=== PATIENT | female | born 1955 | race Caucasian/White ===

== ENCOUNTER 2023-05-07 12:47 | Outpatient (AMB) | payer MEDICARE, SELFPAY ==
--- NOTE | 2023-05-07 13:00 | HO.SPINEOV ---
Intake Intake Visit Reasons: Left lumbar radiculopathy Intake Note: Mrs. Mckay is here today c/o left sided low back pain. MRI done @ [facility]/brought disc. [employer] Required: No Assessment & Plan Assessment & Plan (1) Spondylolisthesis, lumbar region: Code(s): M43.16 - Spondylolisthesis, lumbar region (2) Lumbar radiculopathy: Code(s): M54.16 - Radiculopathy, lumbar region Plan Dear Dr Peralta, Thank you for referring Mrs Mckay to our office today. She is a very nice 68-year-old female who presents to the office today for evaluation of a left lumbar radiculopathy that she has had for 6-7 years. Initially which is something that was a mild discomfort but gradually and steadily it has progressed to be severe and unpredictable. It starts on the left side of her buttock and goes down the back of her leg into her calf and foot. She has treated it conservatively with physical therapy, chiropractic. You did a cortisone injection for her at the L4-5 level and this did take some of the severity of the pain away but she still significantly uncomfortable when she has flares up. She will get severe cramp down her left leg which will put her down for the whole day. She takes gabapentin, [id number] medications like NSAIDs and Tylenol p.r.n.. She comes today to see us with an MRI from [facility] showing grade 1 spondylolisthesis at L4-5. PMH: She had an incidental lung cancer discovered last year for which she had a lobectomy and subsequent chemo. She has been stable with no signs of recurrent cancer in her breathing has not been impacted by the surgery. History of hypertension, high cholesterol, hypothyroidism, glaucoma, carpal tunnel surgery, 2 right foot surgeries Social hx: She does not smoke, quit smoking many years ago Medications: Amlodipine, atorvastatin, levothyroxine, Lumigan, dorzolamide, Advair, gabapentin Allergies: None Physical exam: Strength and gait are normal, reflexes normal Imaging review: Lumbar MRI done at [facility] in October of 2022 reveals transitional anatomy, a grade 1 spondylolisthesis at L4-5 with facet arthropathy on the left and significant bilateral lateral recess stenosis. Impression: 60-year-old female presents to the office for evaluation of a left lumbar radiculopathy, denies any back pain, seems to fit best with the L5 distribution. She has clear compression on the MRI at the L4-5 segment. We did flexion-extension x-rays here in the office and it did not show any signs of overt instability. She has failed conservative treatment. In the absence of back pain, Dr. Hong offered her a left L4-5 decompression. All pertinent risks and benefits were discussed. The patient understands that there is a slight risk that there could develop instability after surgery but we suspect it unlikely. The patient will let us know if she would like to proceed. Since she is feeling slightly better after the injection she is going to wait and see how things go. Thank you for allowing us to care for your patient. The total time spent with this visit with this patient was 45 minutes reviewing history, physical exam, lumbar imaging review, and implementation of treatment plan or further diagnostic testing Barrie Hong MD,PhD [facility] Orders: Orders XR lumbar spine 4V min Today M43.16 - Spondylolisthesis, lumbar region Coding Level of Care Code New Pt Level 4 (74039) Diagnoses Spondylolisthesis, lumbar region M43.16 Lumbar radiculopathy M54.16
== END 2023-05-07 13:58 | disposition home or self-care (01) ==
PROVIDERS: Referring Provider Physical Medicine & Rehabilitation; Visit Provider Physician Assistant
DX: M43.16 Spondylolisthesis, lumbar region (principal); M54.16 Radiculopathy, lumbar region
CPT/HCPCS: 99204

== ENCOUNTER 2023-05-07 12:47 | Outpatient (REF) | payer SELFPAY ==
--- NOTE | ~2023-05-07 | XR_ITS ---
EXAMINATION: XR LUMBOSACRAL SPINE WITH OBLIQUES CLINICAL INFORMATION: Spondylolisthesis lumbar region COMPARISON: None available. TECHNIQUE: 4 views of the lumbar spine inclusive of flexion and extension views. FINDINGS: Extensive atherosclerotic aortoiliac calcifications. Bones are diffusely demineralized. Dextroscoliosis of the lumbar spine. Metallic device characteristic of a zipper and a rounded device project over the pelvis. Correlation with clinical exam recommended to confirm etiology. Multilevel lumbar spondylosis most notable at L5-S1 with moderate loss of disc space height and anterolisthesis of L5 on S1. XR/XR lumbar spine 4V min IMPRESSION: Moderate multilevel lumbar spondylosis most notable at L5-S1
== END 2023-05-07 12:48 | disposition home or self-care (01) ==
LOC: HO.HOSX 12:47
PROVIDERS: Visit Provider Physician Assistant
DX: M43.16 Spondylolisthesis, lumbar region (principal); M54.16 Radiculopathy, lumbar region
CPT/HCPCS: 72110

== ENCOUNTER 2023-06-13 11:15 | Day surgery (SDC) | payer MEDICARE, SELFPAY ==
--- NOTE | 2023-06-06 | ECG_ITS ---
Test Reason : PREOP Blood Pressure : / mmHG Vent. Rate : 066 BPM Atrial Rate : 066 BPM P-R Int : 162 ms QRS Dur : 080 ms QT Int : 374 ms P-R-T Axes : 075 083 078 degrees QTc Int : 392 ms Normal sinus rhythm Normal ECG No previous ECGs available Referred By: Marilee Oliveira Electronically Signed By:WONG CABAN MD
[2023-06-06 12:02] VITALS: BP 124/78; PULSE 71; RESP 16; O2SAT 96; BMI 25.6
--- NOTE | 2023-06-06 12:17 | HO.ANESPROP2 ---
Documented by User: Marilee Oliveira NP 06/12/23 08:38 HPI - Anesthesia Eval Consult details Narrative: 68yo F for Left L4-5 Decompression No recent illness No CP/SOB with limited activity d/t pain only s/p MARTINA lobectomy 2021 COPD - stable - albuterol only ~ monthy [facility] Active Problems Active Problems: All Active Problems (Updated 06/05/23 @ 10:55 by Lynn Cain RN) Lumbar radiculopathy (Acute) Spondylolisthesis, lumbar region (Acute) Past Medical History Medical History (Updated 06/05/23 @ 10:55 by Lynn Cain RN) Sciatica of left side History of chemotherapy Hx of cancer of lung Full dentures Strain of biceps muscle Tendonitis Arthritis Low back pain Hypothyroidism Glaucoma Numbness Elevated cholesterol HTN (hypertension) COPD (chronic obstructive pulmonary disease) Family History Family history of problems with anesthesia: Yes (Daughter with full body rash after shoulder surgery with GA) Surgical History Surgical History (Updated 06/05/23 @ 11:04 by Lynn Cain RN) History of carpal tunnel release of both wrists Hx of foot surgery History of lobectomy of lung Hx of colonoscopy History of Problems with Anesthesia: No Social History Social History (Updated 06/05/23 @ 11:26 by Lynn Cain RN) Household Members: Family Housing: House Are you a primary critical care nurse practitioner to a significant other at home: No Do you presently have visiting nurse or other home services: No Patient Tobacco Use Status: Former Tobacco user Quit Date: 2010 Tobacco use type: Cigarette Years Smoked: 40 Patient Interested in Nicotine Replacement: Yes (currently uses Nicotine lozenges 4 mg q3h) Use of substances other than those prescribed or required for medical reasons: No Have you been hit, kicked, punched, or otherwise hurt by someone within the past year? If so, by whom?: No Are you DNR?: No Advance Directives: No Advance Directives Information Provided: Yes Advance Directives on File: No Recently lost weight without trying: No Nutrition Risks: No Nutritional Risk Meds Allergies Allergy/AdvReac Type Severity Reaction Status Date / Time No Known Allergies Allergy Verified 06/05/23 10:56 Home Medications Medication Instructions Recorded Confirmed Last Taken Type albuterol sulfate 90 mcg/actuation 1 - 2 puff inhalation Q4-6H PRN 10/18/23 10/18/23 Unknown History aerosol inhaler Shortness Of Breath Or Wheezing amlodipine 10 mg tablet 10 mg PO BEDTIME 06/05/23 06/05/23 Unknown History atorvastatin 10 mg tablet 10 mg PO DAILY cholesterol 06/05/23 06/05/23 Unknown History bimatoprost 0.01 % eye drops 1 drp ophthalmic (eye) BEDTIME 06/05/23 06/05/23 Unknown History (Lumigan) cyclobenzaprine 10 mg tablet 5 - 10 mg PO BEDTIME PRN Muscle 06/05/23 06/05/23 Unknown History Pain dorzolamide 2 % eye drops 1 drp ophthalmic (eye) BID 06/05/23 06/05/23 Unknown History fluticasone 250 mcg-salmeterol 50 1 inh inhalation BID 06/05/23 06/05/23 Unknown History mcg/dose blistr powdr for inhalation gabapentin 600 mg tablet 600 mg PO TID 06/05/23 06/05/23 06/13/23 History levothyroxine 100 mcg tablet 100 mcg PO DAILY 06/05/23 06/05/23 06/13/23 History nicotine (polacrilex) 4 mg buccal 4 mg buccal Q2-4H PRN Nicotine 06/05/23 06/05/23 Unknown History lozenge Cravings Exam Exam Date and Time: June 06, 2023 1217 Height,Weight and Vital Signs: Height 5 ft Weight 59.421 kg Last Vital Signs Pulse 71 06/06/23 12:02 Resp 16 06/06/23 12:02 BP 124/78 06/06/23 12:02 Pulse Ox 96 06/06/23 12:02 O2 Del Method Room Air 06/06/23 12:02 Pertinent Lab Results Pertinent Lab Results: BMP, A1C 03/2023 from outside lab WNL Narrative Narrative: Lab Results 06/06/23 Range/Units 12:46 WBC 9.2 (4.8-10.8) X10*3/uL RBC 4.20 (4.20-5.50) X10*6/uL Hgb 12.9 (12.0-16.0) g/dl Hct 39.3 (37.0-47.0) % MCV 93.6 (80.0-98.0) fL MCH 30.7 (27.0-33.0) pg MCHC 32.8 (31.0-35.0) g/dl RDW 12.9 (11.0-16.0) % Plt Count 292 (160-400) X10*3/uL MPV 10.1 (9.4-12.3) fL Absolute Nucleated RBC 0.000 (0.0-0.012) X10*3/uL Nucleated RBC % (auto) 0.0 (0.0-0.2) /100WBC Airway Mallampati Class: I TM Dist: >3cm Neck ROM: Full Denture: Upper and Lower Heart: RRR Lungs: CTAB Assessment and Plan Assessment Anesthesia Assessment: Anesthesia Plan Discussed and PAT Visit Final Anesthetic Review Family History of Problems with Anesthesia: Yes (Daughter with full body rash after shoulder surgery with [facility]) History of Problems with Anesthesia: No Documented by User: Ramsey Higgins MD 06/13/23 12:10 [facility] Past Medical History Medical History (Updated 06/05/23 @ 10:55 by Lynn Cain RN) Sciatica of left side History of chemotherapy Hx of cancer of lung Full dentures Strain of biceps muscle Tendonitis Arthritis Low back pain Hypothyroidism Glaucoma Numbness Elevated cholesterol HTN (hypertension) COPD (chronic obstructive pulmonary disease) Functional capacity: independent ambulation Narrative: No DANIELS per patient. Lobectomy for lung cancer 12/2021 is thought to be curative. Surgical History Surgical History (Updated 06/05/23 @ 11:04 by Lynn Cain RN) History of carpal tunnel release of both wrists Hx of foot surgery History of lobectomy of lung Hx of colonoscopy Social History Social History (Updated 06/05/23 @ 11:26 by Lynn Cain, ILA) Household Members: Family Housing: House Are you a primary critical care nurse practitioner to a significant other at home: No Do you presently have visiting nurse or other home services: No Patient Tobacco Use Status: Former Tobacco user Quit Date: 2010 Tobacco use type: Cigarette Years Smoked: 40 Patient Interested in Nicotine Replacement: Yes (currently uses Nicotine lozenges 4 mg q3h) Use of substances other than those prescribed or required for medical reasons: No Have you been hit, kicked, punched, or otherwise hurt by someone within the past year? If so, by whom?: No Are you DNR?: No Advance Directives: No Advance Directives Information Provided: Yes Advance Directives on File: No Recently lost weight without trying: No Nutrition Risks: No Nutritional Risk Meds Allergies Allergy/AdvReac Type Severity Reaction Status Date / Time No Known Allergies Allergy Verified 06/05/23 10:56 Home Medications Medication Instructions Recorded Confirmed Last Taken Type albuterol sulfate 90 mcg/actuation 1 - 2 puff inhalation Q4-6H PRN 06/05/23 06/05/23 Unknown History aerosol inhaler Shortness Of Breath Or Wheezing amlodipine 10 mg tablet 10 mg PO BEDTIME 06/05/23 06/05/23 Unknown History atorvastatin 10 mg tablet 10 mg PO DAILY cholesterol 06/05/23 06/05/23 Unknown History bimatoprost 0.01 % eye drops 1 drp ophthalmic (eye) BEDTIME 06/05/23 06/05/23 Unknown History (Lumigan) cyclobenzaprine 10 mg tablet 5 - 10 mg PO BEDTIME PRN Muscle 06/05/23 06/05/23 Unknown History Pain dorzolamide 2 % eye drops 1 drp ophthalmic (eye) BID 06/05/23 06/05/23 Unknown History fluticasone 250 mcg-salmeterol 50 1 inh inhalation BID 06/05/23 06/05/23 Unknown History mcg/dose blistr powdr for inhalation gabapentin 600 mg tablet 600 mg PO TID 06/05/23 06/05/23 06/13/23 History levothyroxine 100 mcg tablet 100 mcg PO DAILY 06/05/23 06/05/23 06/13/23 History nicotine (polacrilex) 4 mg buccal 4 mg buccal Q2-4H PRN Nicotine 06/05/23 06/05/23 Unknown History lozenge Cravings Exam Airway Mallampati Class: II TM Dist: <=3cm Assessment and Plan Assessment Anesthesia Assessment: Chart Reviewed Final Anesthetic Review NPO: Yes Documented by User: Aroldo Gifford MD 06/13/23 11:57 [facility] Past Medical History Medical History (Updated 06/05/23 @ 10:55 by Lynn Cain, RN) Sciatica of left side History of chemotherapy Hx of cancer of lung Full dentures Strain of biceps muscle Tendonitis Arthritis Low back pain Hypothyroidism Glaucoma Numbness Elevated cholesterol HTN (hypertension) COPD (chronic obstructive pulmonary disease) Surgical History Surgical History (Updated 06/05/23 @ 11:04 by Lynn Cain, ILA) History of carpal tunnel release of both wrists Hx of foot surgery History of lobectomy of lung Hx of colonoscopy Social History Social History (Updated 06/05/23 @ 11:26 by Lynn Cain RN) Household Members: Family Housing: House Are you a primary critical care nurse practitioner to a significant other at home: No Do you presently have visiting nurse or other home services: No Patient Tobacco Use Status: Former Tobacco user Quit Date: 2010 Tobacco use type: Cigarette Years Smoked: 40 Patient Interested in Nicotine Replacement: Yes (currently uses Nicotine lozenges 4 mg q3h) Use of substances other than those prescribed or required for medical reasons: No Have you been hit, kicked, punched, or otherwise hurt by someone within the past year? If so, by whom?: No Are you DNR?: No Advance Directives: No Advance Directives Information Provided: Yes Advance Directives on File: No Recently lost weight without trying: No Nutrition Risks: No Nutritional Risk Meds Allergies Allergy/AdvReac Type Severity Reaction Status Date / Time No Known Allergies Allergy Verified 06/05/23 10:56 Home Medications Medication Instructions Recorded Confirmed Last Taken Type albuterol sulfate 90 mcg/actuation 1 - 2 puff inhalation Q4-6H PRN 06/05/23 06/05/23 Unknown History aerosol inhaler Shortness Of Breath Or Wheezing amlodipine 10 mg tablet 10 mg PO BEDTIME 06/05/23 06/05/23 Unknown History atorvastatin 10 mg tablet 10 mg PO DAILY cholesterol 06/05/23 06/05/23 Unknown History bimatoprost 0.01 % eye drops 1 drp ophthalmic (eye) BEDTIME 06/05/23 06/05/23 Unknown History (Lumigan) cyclobenzaprine 10 mg tablet 5 - 10 mg PO BEDTIME PRN Muscle 06/05/23 06/05/23 Unknown History Pain dorzolamide 2 % eye drops 1 drp ophthalmic (eye) BID 06/05/23 06/05/23 Unknown History fluticasone 250 mcg-salmeterol 50 1 inh inhalation BID 06/05/23 06/05/23 Unknown History mcg/dose blistr powdr for inhalation gabapentin 600 mg tablet 600 mg PO TID 06/05/23 06/05/23 06/13/23 History levothyroxine 100 mcg tablet 100 mcg PO DAILY 06/05/23 06/05/23 06/13/23 History nicotine (polacrilex) 4 mg buccal 4 mg buccal Q2-4H PRN Nicotine 06/05/23 06/05/23 Unknown History lozenge Cravings Assessment and Plan Final Anesthetic Review ASA Class: III Final Preanesthetic Review: No Changes in Pt Med Stat, Meds/Allgs Chart Reviewed, Consent Obtained/Reviewed and Anes Risks/Benef Reviewed Patient Risk: Intermediate Procedure Risk: Intermediate Anesthetic Plan Anesthetic Plan: GA and Agree w/ Assess. and Plan Disposition: Standard PACU
[2023-06-06 13:43] LABS: Hematocrit 39.3 % (37.0-47.0); Hemoglobin 12.9 g/dl (12.0-16.0); Mean Corpuscular HGB Conc 32.8 g/dl (31.0-35.0); Mean Corpuscular Hemoglobin 30.7 pg (27.0-33.0); Mean Corpuscular Volume 93.6 fL (80.0-98.0); Mean Platelet Volume 10.1 fL (9.4-12.3); Platelet Count 292 X10*3/uL (160-400); Red Cell Distribution Width 12.9 % (11.0-16.0); White Blood Count 9.2 X10*3/uL (4.8-10.8)
[2023-06-13] VITALS (9 sets, daily range): BP systolic 128–151; BP diastolic 65–92; PULSE 64–76; RESP 14–18; TEMP 36–36.6; O2SAT 97–100; BMI 25.4
--- NOTE | ~2023-06-13 | FL_ITS ---
EXAMINATION: XR FLUOROSCOPY WITH IMAGES CLINICAL INFORMATION: L4-L5 decompression. COMPARISON: None available. TECHNIQUE: Fluoroscopy Supervised By: Dr. Pepito Hong. Fluoroscopy Time: 13.6 seconds. Cumulative Dose: 4.7406 mGy. DAP: 1.464 Gycm2. Images: 1. FINDINGS: There may be transitional anatomy or lumbarization of S1. Images demonstrate surgical marker placement posterior to the level that demonstrated anterolisthesis on lumbar spine x-ray April 2023. FL/FL guidance in OR IMPRESSION: Fluoroscopy guidance for lumbar spine surgery.
--- NOTE | 2023-06-13 07:03 | MHC.SHP ---
Pre-Procedural Eval Section A Date of Service: 06/13/23 Section B Chief Complaint: Radiculopathy, lumbar region, Spondylolisthesis Allergies: Allergies Allergy/AdvReac Type Severity Reaction Status Date / Time No Known Allergies Allergy Verified 06/05/23 10:56 Review of Systems Sugical H&P ROS: Negative: Constitution, Cardiovascular, Respiratory, Neurological, Psychiatric, Hem-Onc, Allergic/Immunologic, Gastrointestinal, Genitourinary, Musculoskeletal, Integumentary, Endocrine and Eyes/Ears/Nose/Throat Exam Surgical H&P Exam: Not Evaluated: HEENT, Not Evaluated: Heart, Not Evaluated: Lungs, Not Evaluated: Extremities, Not Evaluated: Abdomen, Not Evaluated: Skin and Not Evaluated: Neurological Plan Diagnosis/Plan: Unchanged I have reviewed the history and physical and performed a pertinent physical examination on my patient. No changes have occurred unless specified. plan remains the same, left L4-5 decompression. Time Spent With Patient Time: Total time managing care of this patient today _10___ minutes.
[2023-06-13] MEDS: methocarbamoL 750 MG TABLET PO (11:57)
[2023-06-13] MEDS: Lactated Ringers 1,000 ML 100 ML IVCONT (12:06)
--- NOTE | 2023-06-13 13:52 | PC.NURSE ---
pt tearful r/t wait time. given emotional support repositioned. Reached out to [employer] Adia Stewart and Genoveva Gustafson for ETA. Karla out to bedside and with this RN discussed likely wait time of at least an hour. pt verbalized understanding. offer of transfer to pacu with tv accepted. call johnson in place. Pt not tearful any longer, update given to [employer].
--- NOTE | 2023-06-13 16:05 | P.DS_ITS ---
DS: Providers Provider Date of Service: 06/13/23 Date of discharge: 06/13/23 Primary care physician: Addy Blandon Admitting clinician: Pepito Hong DS: Diagnosis Discharge Diagnosis (1) Lumbar radiculopathy: Status: Acute DS: Summary Time Spent with Patient Time attestation: Total time managing care of this patient today ____ minutes. Discharge coordination time: Less than 30 minutes Quality: Safe Use of Opioids Does Pt have an Active Cancer Diagnosis on the Problem List?: No Quality: Stroke Does the patient have a stroke diagnosis?: No Physical Exam Vital Signs: Vital Signs: Last Vital Signs Temp 97.9 F 06/13/23 11:38 Pulse 69 06/13/23 11:38 Resp 18 06/13/23 11:38 BP 135/82 06/13/23 11:38 Pulse Ox 97 06/13/23 11:38 O2 Del Method Room Air 06/13/23 11:38 BMI result Body Mass Index 25.4 DS: Data Data Completed and Pending Labs on day of discharge: Laboratory Results - last 24 hr 06/13/23 11:37 Blood Type A Positive Antibody Screen NEGATIVE Discharge Plan Discharge Patient Disposition: Home, Self-Care Referrals: Addy Blandon [Other] - 1 Week Discharge Medications: New docusate sodium [Colace] 100 mg capsule 100 mg PO BID Qty: 20 0RF oxycodone 5 mg tablet 5 mg PO Q4H PRN (Reason: pain) Qty: 20 0RF Rx Instructions: Partial Fill upon patient request. Continued cyclobenzaprine 10 mg tablet 5 - 10 mg PO BEDTIME PRN (Reason: Muscle Pain) fluticasone propion-salmeterol 250-50 mcg/dose blister with device 1 inh INHALATION BID gabapentin 600 mg tablet 600 mg PO TID atorvastatin 10 mg tablet 10 mg PO DAILY levothyroxine 100 mcg tablet 100 mcg PO DAILY amlodipine 10 mg tablet 10 mg PO BEDTIME albuterol sulfate 90 mcg/actuation HFA aerosol inhaler 1 - 2 puff INHALATION Q4-6H PRN (Reason: Shortness Of Breath Or Wheezing) dorzolamide 2 % drops 1 drp ophthalmic (eye) BID Lumigan 0.01 % drops 1 drp ophthalmic (eye) BEDTIME nicotine (polacrilex) 4 mg Lozenge 4 mg BUCCAL Q2-4H PRN (Reason: Nicotine Cravings) Discharge Orders: Discharge Order (Routine); Ordered 06/13/23 Ordered By: Barrie El Diet: Advance to usual diet Activity on Discharge: As tolerated Activity Restrictions/Additional Instructions: After your spinal surgery we ask you to observe the following restrictions/guidelines: Activity: It is normal to feel some discomfort as you increase your activity, but that will improve with time. We ask you avoid heavy lifting or acitivities that cause pain. As a general rule, 8lbs is a safe limit for lifting right after surgery. Walk as much as you feel comfortable but not to exhaustion. You will feel extra tired the first few days after surgery. Stay well hydrated. It is OK to walk up and down stairs You may return to driving when you are off narcotics (such as vicodin, oxycodone, dilaudid, etc), and you are back to normal functional capacity. If you have any concerns please check with office before driving. Return to work is specific to each patient and each surgery, so please speak with your doctor/PA at first follow up. Please bring paperwork such as FMLA at that time if you need it filled out. Medications: For optimum pain control, it is best to start with a combination of 500 mg of Tylenol every 4 hours with 600 mg of Motrin every 8 hours, and use narcotics as needed in between for breakthrough pain. We will give you a short supply of narcotics after surgery (usually one weeks worth). If you need more please call the office but do not use more than prescribed. You will need to give our office 48 hours notice if you need na rcotics refilled and we do not fill narcotics on weekends or evenings. If you are on a narcotic, it is a good idea to take a stool softener such as colace or senna to avoid constipation If you take blood thinner such as aspirin, Plavix, Coumadin, Effient, Eliquis etc for conditions such as Afib, DVT, Pulmonary embolus, coronary disease, stents etc please speak with your surgeon about specific details as to when you can resume these medications. You can resume NSAIDs on post op day 1 (eg: Motrin, Naproxen, etc). Follow up: Please call the office, , after surgery to arrange a 3 w red devil follow up for wound check. Wound Care: You may remove your dressing on the first day after surgery. You may leave open to air. Please do not remove the steri strips underneath. they will fall off on their own in one week. IT IS NORMAL FOR THE WOUND TO OOZE OR BE BLOODY FOR A FEW DAYS AFTER SURGERY. IF THIS HAPPENS JUST PLACE NEW DRESSING OVER IT TO AVOID STAINING CLOTHES. You may shower on post op day # 1 We ask that you do not let the water soak the wound. If it does get wet, just towel dry lightly. Please do not scrub your incision or place any type of chemical/ointment on the wound. No tub baths, pools or jacuzzis for one month. If you have any leaking or redness from your wound, or fevers, please call office
--- NOTE | 2023-06-13 16:05 | P.OP_ITS ---
Operative Note Operative Note Date of Service: 06/13/23 Narrative: Preoperative Diagnosis: L4-5 spinal stenosis/lateral recess stenosis/neural foraminal stenosis Operation: Left L4-5 Laminotomy, Partial facetectomy and foraminotomy with use of microscope Consent Informed Consent was obtained for this operation. I have explained the nature, purpose and benefits of the operation. I have discussed the risks and benefit of the operation including possible complications or adverse events with patient/family. Alternative(s) were discussed with the patient with their relative benefits and risks as well as the consequences of not accepting the operation were included in obtaining consent. Surgeon: GRACE CARVALHO MD, PHD Procedure Assisted By: Barrie Dumont Description of Procedure Patient is suffering from left lumbar radiculopathy due to an L4-5 lateral recess stenosis and spondylolisthesis. Flexion-extension show no instability of the spondylolisthesis and therefore she was offered a decompression. The procedure complications were explained. The patient was consented. The patient was brought to the operating room and endotracheally intubated. The patient was turned in prone position on the Marquez frame. Prep and drape was done followed by timeout. The Physician observation assistant provided access. A mid lumbar incision was made followed by release of the left paravertebral muscle to expose the L4-5 laminae and facet joints. An intraoperative x-ray was obtained to confirm the correct level. The microscope was brought in. I took over the procedure. The high-speed drill was used to do a L4-5 laminotomy until flavum ligament was reached. A #2 Kerrison was used to expand the laminotomy near flush to the pedicles and to include a partial facetectomy. The flavum and was opened and resected with a #3 Kerrison to decompress the underlying thecal sac. The flavum ligament was removed to decompress the lateral recess and the exiting L5 nerve root. A long nerve hook could be easily passed along the medial side of the pedicle as a sign of adequate decompression. The microscope was removed. Hemostasis was done. The physician observation assistant close the Incision in 2 layers. Steri-Strips were used to approximate incision. An OpSite with Tegaderm was used to cover the incision. All sponge needle counts were correct. Patient was extubated and transported in stable is to recovery room. Anesthesia: General Estimated Blood Loss (ml): 20 mL Complications: None Duration of Surgery: Under 60 Minutes Postoperative Plan: Discharge to home
[2023-06-13] MEDS: ondansetron HCL 4 MG/2 ML VIAL IVPUSH (16:44)
== END 2023-06-13 18:07 | disposition home or self-care (01) ==
PROVIDERS: Nurse Practitioner; PCP Family Medicine; Visit Provider Neurological Surgery
PROC: (CPT 63047; principal; 2023-06-13 14:00)
DX: M43.16 Spondylolisthesis, lumbar region (principal); M54.16 Radiculopathy, lumbar region; M48.061 Spinal stenosis, lumbar region without neurogenic claudication; I10 Essential (primary) hypertension; J44.9 Chronic obstructive pulmonary disease, unspecified; Z85.118 Personal history of other malignant neoplasm of bronchus and lung; Z90.2 Acquired absence of lung [part of]; Z92.21 Personal history of antineoplastic chemotherapy; Z79.51 Long term (current) use of inhaled steroids; Z79.899 Other long term (current) drug therapy; Z87.891 Personal history of nicotine dependence; Z98.890 Other specified postprocedural states
CPT/HCPCS: 63047; 36415; 85027; 86850; 86900; 86901; 93005; J0131; J0690; J1100; J1885; J2250; J2371; J2405; J3010

== ENCOUNTER → 2023-06-13 11:15 | Outpatient (BNV) | payer MEDICARE, SELFPAY | PROVIDERS: Visit Provider Neurological Surgery | DX: M54.16 Radiculopathy, lumbar region (principal) | CPT/HCPCS: 63047; 99499 ==

== ENCOUNTER 2023-07-05 09:45 | Outpatient (AMB) | payer MEDICARE, SELFPAY ==
--- NOTE | 2023-07-05 09:49 | HO.SPINEOV ---
Intake Intake Visit Reasons: 1st post op Intake Note: Ms. Mckay is here today for her 1st post-op visit. Configuration Management Administrator Required: No Allergies No Known Allergies Allergy (Verified 06/05/23 10:56) Assessment & Plan Assessment & Plan (1) Lumbar radiculopathy: Code(s): M54.16 - Radiculopathy, lumbar region Plan Procedure: Left L4-5 Laminotomy, Partial facetectomy and foraminotomy Ellie comes in today for her 1st postoperative visit. She reports she is very satisfied with the surgery and feels much better than she did preoperatively. The patient reports she is up walking around and completing the majority of her ADLs. She reports that she no longer suffers from her left-sided shooting radiculopathy. She reports no pain and feels as though her surgery was extremely successful. She has been completing all of her regular tasks in his return to normal life. No neurological deficits. Patient is able to ambulate well, rises from a seated position without difficulty. Incision site is closed, well healing, with no signs of drainage. There is no need for further follow-up at this time, the patient may follow up as needed if she feels like she would like to see us again. Her she is agreeable to this. Conrado Hong MD,PhD [facility] Coding Level of Care Code Global (58241) Diagnoses Lumbar radiculopathy M54.16
== END 2023-07-05 10:05 | disposition home or self-care (01) ==
PROVIDERS: PCP Family Medicine; Visit Provider Physician Assistant
DX: M54.16 Radiculopathy, lumbar region (principal)
CPT/HCPCS: 99024

== ENCOUNTER → 2023-07-05 09:45 | Outpatient (BNVA) | payer MEDICARE, SELFPAY | PROVIDERS: Visit Provider Physician Assistant ==